=== PATIENT | female | born 1975 | race African-American/Black ===

== ENCOUNTER 2017-07-16 00:32 | Emergency (ER) | payer SELFPAY ==
[~2017-07-16] VITALS: Ht 160 cm; Wt 107.7 kg
[~2017-07-16 00:32] MED LIST: ALBUTEROL0.09 MG/A1 IH; AMOXICILLIN 50500 MG PO; AMOXICILLIN 8751 TAB PO; AMOXICILLIN875 MG PO; BACTRIM DS 8001 TAB PO; CEPHALEXIN500 M1 PO; CIPRO 500MG TA500 MG PO; FLEXERIL 1010 MG/TAB PO; FLEXERIL10 MG PO; MEDROL 4MG DOSPA4 MG PO; NAPROSYN500 MG PO; NO HOME MEDICATIONS; NORCO 325 MG-51 TAB PO; PERCOCET 325 MG1 TA2 PO; PERCOCET 500 MG1 TAB PO; PHENERGAN 25 TA25 MG PO; PREDNISONE20 MG PO; PRILOSEC 20MG20 MG PO; PROAIR HFA0.09 MG/AC IH; PROTONIX 40MG T40 MG PO; PROVENTIL0.09 MG/A1 IH; ULTRAM 50MG TAB50 MG PO; VENTOLIN INHAL6.8 GM IH; VENTOLIN0.09 MG IH; ZITHROMAX 250M250 MG PO; ZITHROMAX Z PA250 MG PO; ZOFRAN 4MG T4 MG/TAB PO
[2017-07-16 00:35] VITALS: TEMP 97.6
[2017-07-16] MEDS ORDERED: ZOFRAN8 MG PO (01:09)
[2017-07-16] MEDS ORDERED: ULTRAM 50MG TAB50 MG PO (01:09)
[2017-07-16 01:19] LABS: BASO # 0.1 (0.0-0.2); BASO % 0.9 % (0.0-2.0); EOS # 0.5 (0.0-0.7); EOS % 5.1 % (0-4.0); GRAN # 5.3 (1.4-6.5); GRAN % 56.2 % (42.2-75.2); HEMATOCRIT 39.7 % (37.0-47.0); HEMOGLOBIN 12.9 g/dl (12.5-16.0); LYMPH # 2.8 (1.2-3.4); LYMPH % 29.5 % (20.0-51.0); MEAN CELL VOLUME 87 fl (80.0-100.0); MEAN CORPUSCULAR HEMOGLOBIN 28 pg (27.0-31.0); MEAN CORPUSCULAR HGB CONC 33 g/dl (33.0-37.0); MEAN PLATELET VOLUME 10.6 fl (7.4-10.4); MONO # 0.8 (0.1-0.6); MONO % 8.1 % (1.7-9.3); PLATELET COUNT 383 K/mm3 (130-400); RED BLOOD COUNT 4.58 M/mm3 (4.10-5.30); WHITE BLOOD COUNT 9.4 K/mm3 (4.8-10.8)
[2017-07-16 01:22] LABS: PH 5 (5-8); SQUAMOUS EPITHELIAL 20-50 /hpf; URINE APPEARANCE Cloudy; URINE BACTERIA Rare /hpf; URINE BILIRUBIN Negative (NEGATIVE); URINE BLOOD Negative (NEGATIVE); URINE COLOR Yellow; URINE GLUCOSE Negative (NEGATIVE); URINE KETONE Negative (NEGATIVE); URINE RBC 0-2 /hpf; URINE UROBILINOGEN Negative (NEGATIVE)
[2017-07-16 01:29] LABS: ADJUSTED CALCIUM 9.4 mg/dL (8.4-10.2); ALBUMIN 3.8 gm/dL (3.5-5.0); BILIRUBIN,TOTAL 0.6 mg/dL (0.0-1.0); CALCIUM 9.2 mg/dL (8.4-10.2); CREATININE, serum 0.62 mg/dL (0.52-1.25); POTASSIUM 3.9 mmol/L (3.4-5.0)
[2017-07-16 03:04] VITALS: BP 144/103; PULSE 66
== END 2017-07-16 03:05 | disposition home or self-care (01) ==
LOC: COL.ER 00:32
PROVIDERS: Emergency Medicine
DX: E86.9 Volume depletion, unspecified (principal); R11.10 Vomiting, unspecified; E11.9 Type 2 diabetes mellitus without complications; J45.909 Unspecified asthma, uncomplicated; F41.9 Anxiety disorder, unspecified; F32.9 Major depressive disorder, single episode, unspecified; F17.210 Nicotine dependence, cigarettes, uncomplicated; Z98.51 Tubal ligation status
CPT/HCPCS: J1170; J2405; J7030

== ENCOUNTER 2017-08-02 16:23 | Emergency (ER) | payer SELFPAY ==
[~2017-08-02] VITALS: Ht 162.6 cm; Wt 110.0 kg
[~2017-08-02 16:23] MED LIST changes: +ZOFRAN8 MG PO
[2017-08-02 16:27] VITALS: BP 159/90; TEMP 97.9
[2017-08-02 17:56] LABS: BASO # 0.1 (0.0-0.2); BASO % 0.8 % (0.0-2.0); EOS # 0.5 (0.0-0.7); GRAN # 5.8 (1.4-6.5); GRAN % 62.3 % (42.2-75.2); LYMPH # 2.3 (1.2-3.4); LYMPH % 24.4 % (20.0-51.0); MEAN CELL VOLUME 88 fl (80.0-100.0); MEAN CORPUSCULAR HGB CONC 33 g/dl (33.0-37.0); MEAN PLATELET VOLUME 10.3 fl (7.4-10.4); MONO # 0.7 (0.1-0.6); MONO % 7.3 % (1.7-9.3); PLATELET COUNT 459 K/mm3 (130-400); REDCELL DISTRIBUTION WIDTH-CV 13.3 % (11.5-14.5)
[2017-08-02 17:57] LABS: HEMATOCRIT 35.9 % (37.0-47.0); HEMOGLOBIN 11.7 g/dl (12.5-16.0); MEAN CORPUSCULAR HEMOGLOBIN 29 pg (27.0-31.0)
[2017-08-02 18:07] LABS: ALBUMIN 4.1 gm/dL (3.5-5.0); BILIRUBIN,TOTAL 0.4 mg/dL (0.0-1.0); CALCIUM 9.5 mg/dL (8.4-10.2); CREATININE, serum 0.74 mg/dL (0.52-1.25); POTASSIUM 3.7 mmol/L (3.4-5.0); TOTAL PROTEIN 7.1 gm/dL (6.4-8.2)
[2017-08-02 19:09] LABS: COLLECTION METHOD CLEAN CATCH
[2017-08-02 19:19] LABS: MUCOUS Present /lpf; PH 6 (5-8); SQUAMOUS EPITHELIAL 0-2 /hpf; URINE APPEARANCE Hazy; URINE BACTERIA None Seen /hpf; URINE BILIRUBIN Negative (NEGATIVE); URINE BLOOD Negative (NEGATIVE); URINE COLOR Yellow; URINE GLUCOSE Negative (NEGATIVE); URINE KETONE Negative (NEGATIVE); URINE LEUKOCYTE ESTERASE Trace (NEGATIVE); URINE NITRATE Negative (NEGATIVE); URINE PROTEIN(semi-quant) Negative (NEGATIVE); URINE RBC 0-2 /hpf; URINE UROBILINOGEN Negative (NEGATIVE)
[2017-08-02] MEDS ORDERED: PERCOCET 325 MG1 TA2 PO (20:33)
[2017-08-02 20:47] VITALS: PULSE 88
== END 2017-08-02 20:47 | disposition home or self-care (01) ==
LOC: COL.ER 16:23
PROVIDERS: Nurse Practitioner
DX: D25.9 Leiomyoma of uterus, unspecified (principal); J45.909 Unspecified asthma, uncomplicated; F17.210 Nicotine dependence, cigarettes, uncomplicated; Z98.890 Other specified postprocedural states; Z98.51 Tubal ligation status; Z32.02 Encounter for pregnancy test, result negative

== ENCOUNTER → 2018-02-20 | Outpatient (CLI) | payer BC | LOC: COL.PUL 11:13 | DX: J45.909 Unspecified asthma, uncomplicated (principal) ==

== ENCOUNTER 2019-02-25 14:05 | Outpatient (RCR) | payer OTHER | END 2019-04-14 15:43 | disposition home or self-care (01) | LOC: WSOH 14:05 | DX: S61.314A Laceration without foreign body of right ring finger with damage to nail, initial encounter (principal); W26.8XXA Contact with other sharp object(s), not elsewhere classified, initial encounter; Y92.89 Other specified places as the place of occurrence of the external cause; Y93.89 Activity, other specified; Y99.0 Civilian activity done for income or pay; Z23 Encounter for immunization; J45.909 Unspecified asthma, uncomplicated; F17.208 Nicotine dependence, unspecified, with other nicotine-induced disorders; Z79.899 Other long term (current) drug therapy ==

== ENCOUNTER 2019-06-01 15:05 | Outpatient (RCR) | payer OTHER | END 2019-06-23 09:40 | disposition home or self-care (01) | LOC: WSOT 15:05 | DX: S62.634A Displaced fracture of distal phalanx of right ring finger, initial encounter for closed fracture (principal) ==

== ENCOUNTER 2019-11-22 08:03 | Emergency (ER) | payer BC ==
[~2019-11-22] VITALS: Ht 162.6 cm; Wt 117.3 kg
[2019-11-22 08:14] VITALS: BP 124/82; PULSE 73; TEMP 97
== END 2019-11-22 09:10 | disposition home or self-care (01) ==
LOC: COL.ER 08:03
DX: S93.402A Sprain of unspecified ligament of left ankle, initial encounter (principal); J45.909 Unspecified asthma, uncomplicated; X50.1XXA Overexertion from prolonged static or awkward postures, initial encounter

== ENCOUNTER 2020-05-03 20:59 | Emergency (ER) | payer BC ==
[~2020-05-03] VITALS: Ht 162.6 cm; Wt 118.2 kg
[2020-05-03] MEDS ORDERED: AMOXICILLIN 50500 MG PO (22:37)
[2020-05-03 22:51] VITALS: BP 126/74; PULSE 84; TEMP 97.8
== END 2020-05-03 22:58 | disposition home or self-care (01) ==
LOC: COL.ER 20:59
DX: L50.0 Allergic urticaria (principal); T36.1X5A Adverse effect of cephalosporins and other beta-lactam antibiotics, initial encounter; J45.909 Unspecified asthma, uncomplicated; F17.210 Nicotine dependence, cigarettes, uncomplicated; Z88.6 Allergy status to analgesic agent

== ENCOUNTER 2022-08-13 08:13 | Emergency (ER) | payer BC ==
[~2022-08-13] VITALS: Ht 162.6 cm; Wt 127.3 kg
[2022-08-13 08:21] VITALS: BP 107/54; TEMP 98.1
[2022-08-13] MEDS ORDERED: AKTOB 5 ML5 ML OP (08:45)
[2022-08-13 09:04] VITALS: PULSE 70
== END 2022-08-13 09:04 | disposition home or self-care (01) ==
LOC: COL.ER 08:13
DX: H10.9 Unspecified conjunctivitis (principal); F17.210 Nicotine dependence, cigarettes, uncomplicated; Z91.040 Latex allergy status

== ENCOUNTER 2022-08-16 23:56 | Emergency (ER) | payer BC ==
[~2022-08-16] VITALS: Ht 162.6 cm; Wt 127.3 kg
[~2022-08-16 23:56] MED LIST changes: +AKTOB 5 ML5 ML OP
[2022-08-17 00:51] LABS: COLLECTION METHOD CLEAN CATCH
[2022-08-17 00:56] LABS: BASO # 0.1 K/mm3 (0.0-0.2); BASO % 0.7 % (0.0-2.0); EOS # 0.3 K/mm3 (0.0-0.7); EOS % 3.2 % (0.0-4.0); GRAN # 5.1 K/mm3 (1.4-6.5); GRAN % 63.7 % (42.2-75.2); HEMATOCRIT 38.3 % (37.0-47.0); HEMOGLOBIN 12.5 g/dl (12.5-16.0); LYMPH # 1.8 K/mm3 (1.2-3.4); LYMPH % 21.9 % (20.0-51.0); MEAN CELL VOLUME 88 fl (80.0-100.0); MEAN CORPUSCULAR HEMOGLOBIN 29 pg (27-31); MEAN CORPUSCULAR HGB CONC 33 g/dl (33.0-37.0); MEAN PLATELET VOLUME 10.5 fl (7.4-10.4); MONO # 0.8 K/mm3 (0.1-0.6); MONO % 10.3 % (1.7-9.3); PLATELET COUNT 371 K/mm3 (130-400); RED BLOOD COUNT 4.34 M/mm3 (4.10-5.30); REDCELL DISTRIBUTION WIDTH-CV 13.2 % (11.5-14.5)
[2022-08-17 01:00] LABS: MUCOUS Present (NOT PRESENT); SQUAMOUS EPITHELIAL 0-2 /hpf (0-10); URINE BACTERIA None Seen /hpf (NONE SEEN); URINE RBC 0-2 /hpf (0-2)
[2022-08-17 01:01] LABS: URINE APPEARANCE Clear (CLEAR/HAZY); URINE BLOOD Negative (NEGATIVE); URINE COLOR Yellow (YELLOW); URINE GLUCOSE Negative (NEGATIVE); URINE KETONE Negative (NEGATIVE); URINE NITRATE Negative (NEGATIVE); URINE PROTEIN(semi-quant) Negative (NEGATIVE); URINE UROBILINOGEN 0.2 E.U/dL (0.2-1.0)
[2022-08-17 01:13] LABS: ALBUMIN 3.6 gm/dL (3.5-5.0); BILIRUBIN,TOTAL 0.6 mg/dL (0.2-1.2); CALCIUM 9.1 mg/dL (8.4-10.2); CREATININE, serum 0.81 mg/dL (0.57-1.11); POTASSIUM 3.9 mmol/L (3.5-4.5); TOTAL PROTEIN 6.6 gm/dL (6.2-8.1)
[2022-08-17 01:31] VITALS: BP 137/83; PULSE 77; TEMP 98.6
== END 2022-08-17 01:31 | disposition home or self-care (01) ==
LOC: COL.ER 23:56
PROVIDERS: Family Medicine
DX: E86.0 Dehydration (principal); Z91.040 Latex allergy status; Z20.822 Contact with and (suspected) exposure to COVID-19
CPT/HCPCS: J7120

== ENCOUNTER → 2023-02-18 | Outpatient (CLI) | payer BC ==
[2023-02-18 09:50] LABS: COLLECTION METHOD CLEAN CATCH
[2023-02-18 09:54] LABS: BASO # 0.1 K/mm3 (0.0-0.2); BASO % 0.8 % (0.0-2.0); EOS # 0.3 K/mm3 (0.0-0.7); EOS % 3.9 % (0.0-4.0); GRAN # 5.7 K/mm3 (1.4-6.5); GRAN % 66.7 % (42.2-75.2); HEMATOCRIT 40.2 % (37.0-47.0); HEMOGLOBIN 13.3 g/dl (12.5-16.0); LYMPH # 1.8 K/mm3 (1.2-3.4); LYMPH % 21.4 % (20.0-51.0); MEAN CELL VOLUME 87 fl (80.0-100.0); MEAN CORPUSCULAR HEMOGLOBIN 29 pg (27-31); MEAN CORPUSCULAR HGB CONC 33 g/dl (33.0-37.0); MEAN PLATELET VOLUME 10.2 fl (7.4-10.4); MONO # 0.6 K/mm3 (0.1-0.6); MONO % 6.8 % (1.7-9.3); PLATELET COUNT 418 K/mm3 (130-400); RED BLOOD COUNT 4.62 M/mm3 (4.10-5.30); REDCELL DISTRIBUTION WIDTH-CV 13.2 % (11.5-14.5)
[2023-02-18 09:59] LABS: MUCOUS Present (NOT PRESENT); SQUAMOUS EPITHELIAL 0-2 /hpf (0-10); URINE BACTERIA None Seen /hpf (NONE SEEN); URINE RBC None Seen /hpf (0-2)
[2023-02-18 10:00] LABS: URINE APPEARANCE Clear (CLEAR/HAZY); URINE COLOR Yellow (YELLOW); URINE GLUCOSE Negative (NEGATIVE); URINE KETONE Negative (NEGATIVE); URINE PROTEIN(semi-quant) Negative (NEGATIVE); URINE UROBILINOGEN 0.2 E.U/dL (0.2-1.0)
[2023-02-18 10:01] LABS: URINE BLOOD Negative (NEGATIVE); URINE NITRATE Negative (NEGATIVE)
[2023-02-18 10:16] LABS: ALBUMIN 3.6 gm/dL (3.5-5.0); BILIRUBIN,TOTAL 0.4 mg/dL (0.2-1.2); CALCIUM 9.1 mg/dL (8.4-10.2); CREATININE, serum 0.77 mg/dL (0.57-1.11); TOTAL PROTEIN 6.9 gm/dL (6.2-8.1)
== END ==
LOC: COL.RAD 09:15
PROVIDERS: Physician Assistant Medical
DX: R10.13 Epigastric pain (principal); R11.2 Nausea with vomiting, unspecified

== ENCOUNTER → 2023-09-05 | Outpatient (CLI) | payer BC ==
[~2023-09-05] MED LIST changes: +BREO ELLIPTA 21 EACH IH; +FLONASE NASAL S16 GM NS; +SINGULAIR 110 MG/TAB PO; +ZYRTEC 10MG10 MG PO
[2023-09-05 08:53] LABS: COLLECTION METHOD CLEAN CATCH
[2023-09-05 08:58] LABS: BASO # 0.1 K/mm3 (0.0-0.2); BASO % 0.9 % (0.0-2.0); EOS # 0.3 K/mm3 (0.0-0.7); EOS % 3.3 % (0.0-4.0); GRAN # 5.7 K/mm3 (1.4-6.5); GRAN % 70.9 % (42.2-75.2); HEMATOCRIT 38.2 % (37.0-47.0); HEMOGLOBIN 12.5 g/dl (12.5-16.0); LYMPH # 1.3 K/mm3 (1.2-3.4); LYMPH % 16.6 % (20.0-51.0); MEAN CELL VOLUME 88 fl (80.0-100.0); MEAN CORPUSCULAR HEMOGLOBIN 29 pg (27-31); MEAN CORPUSCULAR HGB CONC 33 g/dl (33.0-37.0); MEAN PLATELET VOLUME 10.4 fl (7.4-10.4); MONO # 0.6 K/mm3 (0.1-0.6); MONO % 7.9 % (1.7-9.3); PLATELET COUNT 442 K/mm3 (130-400); RED BLOOD COUNT 4.35 M/mm3 (4.10-5.30); REDCELL DISTRIBUTION WIDTH-CV 13.1 % (11.5-14.5)
[2023-09-05 09:08] LABS: PH 5.5 (5.0-8.5); URINE APPEARANCE Clear (CLEAR/HAZY); URINE BLOOD Negative (NEGATIVE); URINE COLOR Yellow (YELLOW); URINE GLUCOSE Negative (NEGATIVE); URINE KETONE Negative (NEGATIVE); URINE NITRATE Negative (NEGATIVE); URINE PROTEIN(semi-quant) Negative (NEGATIVE)
[2023-09-05 09:09] LABS: MUCOUS Present (NOT PRESENT); SQUAMOUS EPITHELIAL 0-2 /hpf (0-10); URINE RBC None Seen /hpf (0-2)
[2023-09-05 09:19] LABS: ALBUMIN 3.7 gm/dL (3.5-5.0); BILIRUBIN,TOTAL 0.7 mg/dL (0.2-1.2); CALCIUM 9.5 mg/dL (8.4-10.2); CHOLESTEROL RISK RATIO 5.1; CREATININE, serum 0.83 mg/dL (0.57-1.11); POTASSIUM 3.9 mmol/L (3.5-4.5); TOTAL PROTEIN 7.1 gm/dL (6.2-8.1)
[2023-09-05 09:29] LABS: TSH w REFLEX 0.631 uIU/mL (0.350-4.940)
== END ==
LOC: COL.LAB 08:01
PROVIDERS: Physician Assistant Medical
DX: Z13.1 Encounter for screening for diabetes mellitus (principal); Z13.29 Encounter for screening for other suspected endocrine disorder; Z13.220 Encounter for screening for lipoid disorders; E55.9 Vitamin D deficiency, unspecified; D64.9 Anemia, unspecified

== ENCOUNTER 2023-12-06 11:09 | Day surgery (SDC) | payer BC ==
[~2023-12-06] VITALS: Ht 160 cm; Wt 128.3 kg
[~2023-12-06 11:09] MED LIST changes: +LR 1,000 ML IV SCH; +Ondansetron 4 MG/2 ML VIAL IV PRN
[2023-12-06] MEDS ORDERED: WEGOVY2.4 MG/0.7 SQ (11:42)
[2023-12-06 12:00] VITALS: BP 137/102; PULSE 82; TEMP 97.6
[2023-12-06] MEDS ORDERED: Lidocaine PF 2% (20 MG/ML) 5 ML VIAL ONE (12:18)
[2023-12-06 12:55] VITALS: BP 139/81; PULSE 76; TEMP 97
[2023-12-06 13:10] VITALS: BP 150/96; PULSE 73
--- NOTE | 2023-12-06 13:40 | NUR ---
1255-PATIENT ARRIVED VIA CART TO ENDO BAY 2, PATIENT ALERT AND ORIENTED ON ARRIVAL. PATIENT AMBULATED TO RECLINER WITH ASSISTANCE, WARM BLANKETS PROVIDED. VITAL SIGNS TAKEN. VSS. PATIENT DENIES PAIN OR NAUSEA, REPORTS "JUST TIRED". REPORT OBTAINED FROM SHELTON BONILLA. 1310-VSS. PT TOLERATING PO INTAKE WITHOUT COMPLAINTS 1315-DR. MORENO AT BEDSIDE TO DISCUSS PROCEDURE FINDINGS 1320-IV CATHETER DISCONTINUED, TIP INTACT. PRESSURE HELD AND BANDAGE APPLIED. PATIENT DRESSED WITH SPOUSE ASSIST. 1334-PATIENT DISCHARGED HOME TO [facility] VIA WHEELCHAIR, ACCOMPANIED BY SPOUSE. ALL BELONGINGS AND DC PAPERWORK SENT WITH PT.
== END 2023-12-06 13:34 | disposition home or self-care (01) ==
LOC: SDCO 11:09
DX: Z12.11 Encounter for screening for malignant neoplasm of colon (principal); K62.1 Rectal polyp; F17.210 Nicotine dependence, cigarettes, uncomplicated
CPT/HCPCS: J2704; J7120

== ENCOUNTER → 2024-01-20 | Outpatient (CLI) | payer BC ==
[~2024-01-20] MED LIST changes: -LR 1,000 ML IV SCH; -Ondansetron 4 MG/2 ML VIAL IV PRN; +WEGOVY2.4 MG/0.7 SQ
== END ==
LOC: COL.LAB 08:24
DX: L68.0 Hirsutism (principal)

== ENCOUNTER → 2024-01-22 | Outpatient (CLI) | payer BC | LOC: COL.RAD 06:31 | DX: M25.512 Pain in left shoulder (principal) ==

== ENCOUNTER → 2024-06-05 | Outpatient (CLI) | payer BC ==
[2024-06-05 23:59] LABS: FOLLICLE STIMULATING HORMONE 35.7 mIU/mL (())
== END ==
LOC: COL.LAB 15:51
PROVIDERS: Physician Assistant
DX: R53.83 Other fatigue (principal)